=== PATIENT | female | born 1985 | race Caucasian/White ===

== ENCOUNTER 2017-05-21 19:15 | Emergency (ER) | payer BC ==
--- NOTE | 2017-05-21 20:22 | RAD ---
EXAM: ONE VIEW CHEST 05/21/17 HISTORY: Pain. COMPARISON: None. FINDINGS: Normal cardiac silhouette. The pulmonary vessels and hilum are normal. No masses. No consolidation. N o pneumothorax or osseous abnormalities. IMPRESSION: No acute cardiopulmonary process. POS: [facility]
== END 2017-05-21 21:13 | disposition home or self-care (01) ==
LOC: ERS 19:15
DX: B34.9 Viral infection, unspecified (principal); R09.1 Pleurisy; F41.9 Anxiety disorder, unspecified; F32.9 Major depressive disorder, single episode, unspecified
CPT/HCPCS: 71010; 93005; 94760

== ENCOUNTER 2018-09-17 03:25 | Emergency (ER) | payer BC, OTHER ==
[2018-09-17 03:48] LABS: #Lymphocytes 0.7 thou/uL (1.20-3.40); #Monocytes 0.9 thou/uL (0.11-0.59); #Neutrophils 15.9 thou/uL (1.40-6.50); %Basophils 0.1 % (0.0-1.0); %Eosinophils 0.3 % (0.0-10.0); %Lymphocytes 4.1 % (21.0-51.0); %Monocytes 5.2 % (0.0-10.0); %Neutrophils 90.4 % (42.0-75.0); Hemoglobin 15.7 g/dL (12.0-16.0); Mean Corpuscular Hemoglobin 31.9 pg (27.0-31.0); Mean Corpuscular Volume 93.9 fL (78.0-98.0); Mean Platelet Volume 7.7 fL (7.4-10.4); Platelet Count 272 thou/uL (130-400); RBC Distribution Width 10.9 % (11.5-14.5); Red Blood Cell (RBC) Count 4.91 mill/uL (4.20-5.40); White Blood Cell (WBC) Count 17.6 thou/uL (4.8-10.8)
[2018-09-17] MEDS ORDERED: Ondansetron PF 4 MG/2 ML Vial ONE (03:52)
[2018-09-17 03:57] LABS: Bilirubin Moderate (Negative); Blood, Urine Negative (Negative); Glucose, Urine (Dipstick) Negative (Negative); Leukocyte Negative (Negative); Nitrite Positive (Negative); Protein, Urine (Dipstick) Trace mg/dL (Neg-Trace); Urobilinogen 0.2 mg/dL (0.2-1.0)
[2018-09-17 04:05] LABS: RBC/HPF 0-3 HPF (0-3); Specific Gravity, Urine 1.042 (1.002-1.036); WBC/HPF 0-3 HPF (0-3)
[2018-09-17 04:06] LABS: Crystals/HPF 3+ AMORPH URATES HPF (Negative); Squamous Epithelial 0-3 HPF (0-3)
[2018-09-17 04:07] LABS: Bacteria/HPF Rare-Few HPF (None Seen)
[2018-09-17 04:08] LABS: Pregnancy Test - Urine (BHCG) Negative (Negative); Pregu Control Background? CLEAR/WHITE (CLR/WHITE); Pregu Control Bar Appear? YES (CONTROL BAR); Specific Gravity 1.042 (1.002-1.036)
[2018-09-17 04:08] LABS: ALT (SGPT) 10 U/L (8-55); AST (SGOT) 15 U/L (5-34); Albumin 4.6 g/dL (3.5-5.0); Alkaline Phosphatase 83 U/L (40-150); Anion Gap 13 mmol/L (10-20); BUN (Urea Nitrogen) 14 mg/dL (7.0-18.7); Bilirubin, Total 1.7 mg/dL (0.2-1.2); Calc. Creatinine Clearance 0 mL/min (70-130); Calcium 9.4 mg/dL (7.8-10.44); Carbon Dioxide 28 mmol/L (22-29); Chloride 104 mmol/L (98-107); Estimated GFR-MDRD 86; Globulin 2.6 g/dL (2.4-3.5); Glucose 145 mg/dL (70-105); Potassium 3.9 mmol/L (3.5-5.1); Protein, Total 7.2 g/dL (6.0-8.3); Sodium 141 mmol/L (136-145)
[2018-09-17 04:19] LABS: Clarity Cloudy (Clear)
[2018-09-17] MEDS ORDERED: Metoclopramide HCl 10 MG/2 ML VIAL ONE (05:25)
[2018-09-17] MEDS ORDERED: diphenhydrAMINE 50 MG/ML VIAL ONE (05:25)
[2018-09-17] MEDS ORDERED: Pantoprazole 40 MG VIAL ONE (05:25)
[2018-09-17] MEDS ORDERED: Dicyclomine 20 MG TAB ONE (05:28)
--- NOTE | 2018-09-17 07:25 | CT ---
CT ABDOMEN AND PELVIS WITH CONTRAST: Date: 09/17/18 No prior comparison. INDICATION: Abdominal pain. FINDINGS: There is generalized distention of fluid-filled bowel, although the bowel is incompletely assessed wi thout enteric contrast. There is no free air or portal vein gas. No significant free fluid. Abdominal aorta is normal in caliber. The solid abdominal organs are grossly unremarkable. There is mild wall prominence of the stomach, notably at the mid to distal aspect. There is linear oriented calcificatio n of the left upper quadrant. Lung bases are clear. No acute osseous abnormalities. The uterus is het erogeneous in density and may be physiologic in etiology. There is slight indistinctness of the wall of the rectosigmoid colon with mild surrounding fat stranding, which could relate to an inflammatory process. IMPRESSION: Generalized fluid-filled distention of the small bowel, as well as fluid contents of the colon. This may be on the basis of an enterocolitis. There is also suggestion of mild inflammatory component of t he stomach and rectosigmoid colon. Bowel distention may relate to an ileus as findings of high grade obstruction are not evident, within limitations, given diffuse fluid content of the colon. This could be further assessed with dedicated follow-up imaging containing enteric contrast as clinically indic ated. POS: [facility]
== END 2018-09-17 08:02 | disposition home or self-care (01) ==
LOC: ERS 03:25
DX: K52.9 Noninfective gastroenteritis and colitis, unspecified (principal); N39.0 Urinary tract infection, site not specified; F41.9 Anxiety disorder, unspecified; F32.9 Major depressive disorder, single episode, unspecified; Z79.01 Long term (current) use of anticoagulants
CPT/HCPCS: 36415; 74177; 80053; 81003; 81015; 81025; 85025; 87086; 96361; 96365; 96375; C9113; J1200; J2405; J2765

== ENCOUNTER 2018-09-20 09:51 | Emergency (ER) | payer OTHER ==
[2018-09-20 10:31] LABS: #Eosinphils 0.1 thou/uL (0.0-0.7); #Lymphocytes 1.5 thou/uL (1.20-3.40); #Monocytes 0.5 thou/uL (0.11-0.59); #Neutrophils 1.5 thou/uL (1.40-6.50); %Basophils 1.2 % (0.0-1.0); %Eosinophils 3.6 % (0.0-10.0); %Lymphocytes 40.4 % (21.0-51.0); %Monocytes 14.7 % (0.0-10.0); %Neutrophils 40.1 % (42.0-75.0); Hemoglobin 14.5 g/dL (12.0-16.0); Mean Corpuscular Hemoglobin 32.4 pg (27.0-31.0); Mean Corpuscular Volume 95.3 fL (78.0-98.0); Mean Platelet Volume 8.2 fL (7.4-10.4); Platelet Count 194 thou/uL (130-400); Red Blood Cell (RBC) Count 4.46 mill/uL (4.20-5.40); White Blood Cell (WBC) Count 3.6 thou/uL (4.8-10.8)
[2018-09-20 10:45] LABS: ALT (SGPT) 19 U/L (8-55); AST (SGOT) 23 U/L (5-34); Albumin 4.1 g/dL (3.5-5.0); Alkaline Phosphatase 54 U/L (40-150); Anion Gap 15 mmol/L (10-20); BUN (Urea Nitrogen) 5 mg/dL (7.0-18.7); Bilirubin, Total 0.8 mg/dL (0.2-1.2); Calc. Creatinine Clearance 0 mL/min (70-130); Calcium 8.9 mg/dL (7.8-10.44); Carbon Dioxide 24 mmol/L (22-29); Chloride 105 mmol/L (98-107); Estimated GFR-MDRD Greater than 90; Globulin 2.2 g/dL (2.4-3.5); Glucose 78 mg/dL (70-105); Potassium 3.8 mmol/L (3.5-5.1); Protein, Total 6.3 g/dL (6.0-8.3); Sodium 140 mmol/L (136-145)
[2018-09-20 11:53] LABS: Bilirubin Negative (Negative); Blood, Urine Negative (Negative); Clarity CLEAR (Clear); Glucose, Urine (Dipstick) Negative (Negative); Leukocyte Trace (Negative); Nitrite Negative (Negative); Protein, Urine (Dipstick) Negative (Neg-Trace); Urobilinogen 0.2 mg/dL (0.2-1.0)
[2018-09-20 11:55] LABS: Bacteria/HPF Rare-Few HPF (None Seen); Hyaline Casts/LPF 4-6 HYALINE CAST LPF (0-3 Hyaline); Pathc Cast-AUWi Flag 1.49 (0-2.49); RBC/HPF 0-3 HPF (0-3); Squamous Epithelial 0-3 HPF (0-3); WBC/HPF 0-3 HPF (0-3)
== END 2018-09-20 12:32 | disposition home or self-care (01) ==
LOC: ERS 09:51
DX: E86.0 Dehydration (principal); F41.9 Anxiety disorder, unspecified; F32.9 Major depressive disorder, single episode, unspecified; Z79.899 Other long term (current) drug therapy; Z79.01 Long term (current) use of anticoagulants
CPT/HCPCS: 36415; 80053; 81003; 81015; 85025; 96360; 96361